=== PATIENT | female | born 1995 | race Caucasian/White ===

== ENCOUNTER 2019-11-06 13:07 | Emergency (ER) | payer OTHER, SELFPAY ==
--- NOTE | ~2019-11-06 | XR_ITS ---
EXAMINATION: XR knee RT min 4V DATE: 11/06/2019 13:34 INDICATION: Right knee pain TECHNIQUE: Four views of the right knee were obtained. COMPARISON: None. FINDINGS: Alignment is normal. No fracture or osteochondral lesion. Joint spaces are normal with no e rosions. No joint effusion/synovitis. Soft tissues are unremarkable. IMPRESSION: 1. No acute osseous abnormality. Reviewed, dictated and finalized at location A. [employer]
[2019-11-06 13:11] VITALS: BP 110/74; PULSE 89; RESP 20; TEMP 36.9; O2SAT 99
--- NOTE | 2019-11-06 14:22 | ED.LOWEXIN ---
HPI - Extremity Injury (Lower) General Chief Complaint: Extremity Injury, Lower Stated Complaint: R knee injury Time Seen by Provider: 11/06/19 13:23 Source: patient Mode of arrival: wheelchair Limitations: no limitations History of Present Illness HPI Narrative: This is a 24-year-old female that presents the emergency department for right knee pain after an injury today. Reports she was trying to sit down and put her ankle brace on her left ankle. Reports she lost her balance and fell onto her right knee. Reports she felt a pop in the knee. Reports a recent ankle sprain on the left. Reports since injury today she has had pain in the lower anterior part of her knee. Denies fever, edema, decreased range of motion, or numbness. Related Data Allergies Allergy/AdvReac Type Severity Reaction Status Date / Time cinnamon Allergy Severe DIFFICULTY Verified 11/06/19 13:59 BREATHING/HIVES Review of Systems Review of Systems: Narrative: CONSTITUTIONAL: Denies fever MUSCULOSKELETAL: Reports joint pain, and myalgia. NEUROLOGIC: Denies numbness, or weakness. All systems reviewed & are unremarkable except as noted in HPI and below PMFSH Social History Social History (Updated 11/06/19 @ 14:23 by Vanessa Matthews PA-C) Smoking status: Never smoker Substance use: never Exam Narrative: Exam Narrative: GENERAL: Well-appearing, well-nourished, and in no acute distress. HEAD: Normocephalic, atraumatic. EYES: EOMI. EXTREMITIES: Normal range of motion. No edema, erythema or obvious deformity. Patellar tendon intact SKIN: Warm, dry, no rash. NEURO: No focal deficits. Alert and oriented x3. PSYCH: Normal mood and affect Course Vital Signs Vital signs: Vital Signs Temperature 98.5 F 11/06/19 13:11 Pulse Rate 89 11/06/19 13:11 Respiratory Rate 11/06/19 13:11 Blood Pressure 110/74 11/06/19 13:11 Pulse Oximetry 99 11/06/19 13:11 Temperature 98.5 F 11/06/19 13:11 Pulse Rate 89 11/06/19 13:11 Respiratory Rate 11/06/19 13:11 Blood Pressure 110/74 11/06/19 13:11 Pulse Oximetry 99 11/06/19 13:11 MDM - Extremity Injury (Lower) MDM Narrative Medical decision making narrative: Patient presents the emergency department for right knee pain after an injury today. Right knee x-ray is without acute changes. Patient had a brace from home onset I encouraged her to wear. She also reports she has crutches at home. Patient was instructed to ice, elevate and take [id number] pain medication as needed. She will be given a primary for follow-up. She was given warnings to return to the ER Imaging Data Radiologist's impression: ITS Impressions Knee X-Ray 11/06/19 13:39 IMPRESSION: 1. No acute osseous abnormality. Critical Care Time Critical Care Time Critical Care Time: No Discharge Plan Discharge Clinical Impression: Acute pain of right knee Patient Disposition: Home, Self-Care Condition: Stable Instructions: Knee Sprain (ED) Additional Instructions: Return to the emergency department if you experience fever, redness and swelling of your leg, or any other symptoms that are concerning to you Rest. Wear brace. Ice to the area. Tylenol or ibuprofen as needed for pain Follow-up with primary care doctor Follow-up/Referrals: Arcenio Joy Jr., MD [Physician] - 1 Week PHYSICIAN NOT ON STAFF,NONSTAFF [Primary Care Provider] -
== END 2019-11-06 14:45 | disposition home or self-care (01) ==
PROVIDERS: Emergency Provider Emergency Medicine
DX: M25.561 Pain in right knee (principal); W18.39XA Other fall on same level, initial encounter
CPT/HCPCS: 73564; 99283

== ENCOUNTER 2022-09-08 20:47 | Observation (INO) | payer MEDICAID, SELFPAY ==
[2022-09-08 21:03] VITALS: PULSE 96; O2SAT 100
[2022-09-08 21:04] VITALS: BP 123/67; PULSE 91
--- NOTE | 2022-09-08 21:05 | PC.NURSE ---
FHTs doppled at this time with baseline 145 and range between 145-165. Active movement heard on monitor and patient states she feels movement.
[2022-09-08 21:08] VITALS: PULSE 95; O2SAT 99
--- NOTE | 2022-09-08 21:15 | LDADM ---
This patient, Analy Ibrahim, was admitted to [facility] on 09/08/22 at 20:47. Plans for labor, pain management and were discussed with patient. Patient/family oriented to hospital policies and general routines including ID bracelet, bed and alarms, visiting hours, pain management, procedures, bathroom and other care routines, personal items, smoking policy, room service/diet and guest tray routines, security routines, and visiting hours. Patient/Family are encouraged to report perceived risks to care and to ask questions if they do not understand what they are told or what they should do. See OBIX for further documentation.
[2022-09-08 21:34] LABS: Amorphous Sediment Urine Few; Bacteria Urine Trace /hpf; Mucus Urine Rare /lpf; Squamous Epithelial Cell Urine Few /hpf (Few); WBC Urine 0-3 /hpf
[2022-09-08 21:40] LABS: Add Urine Microscopic? YES; Appearance Urine Slightly Cloudy (Clear); Bilirubin Urine Negative (Negative); Blood Urine Negative (Negative); Color Urine Yellow (Yellow); Glucose Urine UA Negative (Negative); Ketones Urine Negative (Negative); Leukocyte Esterase Ur Negative LEU/UL (Negative); Nitrate Urine Negative (Negative); Protein Urine Negative (Negative); Specific Grav Ur 1.025 (1.001-1.035); pH Urine 6.5 (5.0-9.0)
--- NOTE | 2022-09-08 21:50 | PC.NURSE ---
Dr. Jacobo paged at this time
--- NOTE | 2022-09-08 21:57 | PC.NURSE ---
Dr. Beth Thompson called unit at this time. Informed of patient arrival and c/o vaginal pressure with sharp pains. No contractions noted and FHTs 145, no abnormal vaginal discharge noted and UA results high RBC with the rest negative. Dr. Beth Thompson orders to discharge patient and instruct her to call her primary provider tomorrow to inform them and see if they want to see her.
--- NOTE | 2022-09-10 12:38 | PM.OBTRLD ---
OB - Triage/Final Diagnosis Visit Information Reason for evaluation: threatened labor Comments/Additional reasons for admission: I have assessed the risk for this patient, Analy Ibrahim, and determined that she would benefit from observation care. Evaluation Laboratory results: Laboratory Tests 09/08/22 21:19 Urine Color Yellow Urine Appearance Slightly cloudy Urine pH 6.5 Ur Specific [place] 1.025 Urine Protein Negative Urine Glucose (UA) Negative Urine Ketones Negative Ur Blood (Man) Negative Urine Nitrate Negative Urine Bilirubin Negative Urine Urobilinogen 1.0 Leukocyte Esterase Rfl Negative Urine RBC 6-10 H Urine WBC 0-3 Ur Squamous Epith Cells Few Amorphous Sediment Few H Urine Bacteria Trace Urine Mucus Rare
== END 2022-09-08 22:15 | disposition home or self-care (01) ==
PROVIDERS: Admitting Provider Obstetrics & Gynecology; Visit Provider Obstetrics & Gynecology
DX: O47.9 False labor, unspecified (principal); Z3A.00 Weeks of gestation of pregnancy not specified
CPT/HCPCS: 81001; G0378; G0379